=== PATIENT | male | born 1965 | race Caucasian/White ===

== ENCOUNTER 2023-12-15 13:21 | Emergency (ER) | payer BC ==
[~2023-12-15] VITALS: Ht 172.7 cm; Wt 81.4 kg
[2023-12-15] MEDS ORDERED: LISINOPRIL20 MG PO (14:10)
[2023-12-15] MEDS ORDERED: OXYCODONE HCL10 M1 PO (14:10)
[2023-12-15 14:26] LABS: BASO # 0.04 K/mm3 (0.02-0.10); EOS # 0.09 K/mm3 (0.04-0.40); EOS % 1.3 % (0.0-4.0); HEMATOCRIT 45.1 % (42.0-52.0); HEMOGLOBIN 15.6 g/dL (13.5-18.0); LYMPH# 1.64 K/mm3 (1.50-4.00); MEAN CELL VOLUME 84 fl (78-100); MEAN CORPUSCULAR HEMOGLOBIN 29 pg (27-31); MEAN CORPUSCULAR HGB CONC 35 g/dL (33-37); MEAN PLATELET VOLUME 9.4 fl (7.4-10.4); MONO # 0.53 K/mm3 (0.20-0.80); NEU # 4.71 K/mm3 (1.40-6.50); PLATELET COUNT 227 K/mm3 (130-400); RED BLOOD COUNT 5.35 M/mm3 (4.20-5.60)
[2023-12-15 14:36] LABS: ALBUMIN 4.3 g/dL (3.5-5.0)
[2023-12-15 14:37] LABS: SODIUM 136 mmol/L (136-145)
[2023-12-15 14:38] LABS: CALCIUM 9.5 mg/dL (8.3-10.5)
[2023-12-15 14:39] LABS: GLUCOSE 288 mg/dL (75-110); TOTAL PROTEIN 7.8 g/dL (6.4-8.3)
[2023-12-15 14:40] LABS: CARBON DIOXIDE 22 mmol/L (22-29)
[2023-12-15 14:41] LABS: TOTAL BILIRUBIN 0.3 mg/dL (0.2-1.2)
[2023-12-15 14:44] LABS: AST-SGOT 17 U/L (5-34)
[2023-12-15 14:46] LABS: ALT/SGPT 19 U/L (0-55)
[2023-12-15 14:54] LABS: TROPONIN-I < 0.030 ng/mL (0.00-0.033)
[2023-12-15 15:25] VITALS: BP 155/90
== END 2023-12-15 15:25 | disposition home or self-care (01) ==
LOC: ED 13:21
PROVIDERS: Physician Assistant
DX: I10 Essential (primary) hypertension (principal); T46.4X6A Underdosing of angiotensin-converting-enzyme inhibitors, initial encounter; Z79.899 Other long term (current) drug therapy; Z91.128 Patient's intentional underdosing of medication regimen for other reason

== ENCOUNTER → 2023-12-30 | Outpatient (CLI) | payer BC ==
[~2023-12-30] MED LIST: LISINOPRIL20 MG PO; OXYCODONE HCL10 M1 PO
[2024-02-21 12:46] LABS: ALBUMIN 4.2 g/dL (3.5-5.0); CALCIUM 10.3 mg/dL (8.3-10.5); MAGNESIUM 1.62 mg/dL (1.60-2.60); TOTAL BILIRUBIN 0.3 mg/dL (0.2-1.2)
== END ==
LOC: LAB 17:20
PROVIDERS: Internal Medicine
DX: Z12.5 Encounter for screening for malignant neoplasm of prostate (principal); I10 Essential (primary) hypertension; E11.9 Type 2 diabetes mellitus without complications

== ENCOUNTER → 2024-05-23 | Outpatient (CLI) | payer BC ==
[2024-05-23 15:05] LABS: ALBUMIN 4.1 g/dL (3.5-5.0)
[2024-05-23 15:06] LABS: CALCIUM 9.3 mg/dL (8.3-10.5)
[2024-05-23 15:08] LABS: TOTAL PROTEIN 7.2 g/dL (6.4-8.3)
[2024-05-23 15:09] LABS: TOTAL BILIRUBIN 0.4 mg/dL (0.2-1.2)
[2024-05-23 15:14] LABS: MAGNESIUM 2.24 mg/dL (1.60-2.60)
[2024-05-23 22:39] LABS: FOLLICLE STIMULATING HORMONE 4.1 mIU/mL (1.0-12.0); PROLACTIN AMS 8.9 ng/mL (3.5-19.4)
== END ==
LOC: LAB 14:43
PROVIDERS: Internal Medicine
DX: I10 Essential (primary) hypertension (principal); E78.2 Mixed hyperlipidemia; E11.9 Type 2 diabetes mellitus without complications; F52.21 Male erectile disorder; R20.2 Paresthesia of skin

== ENCOUNTER → 2024-08-29 | Outpatient (CLI) | payer BC ==
[~2024-08-29] VITALS: Ht 172.7 cm; Wt 87.1 kg
[~2024-08-29] MED LIST changes: +HYDROCHLOROTHIA1 T15 PO; +METFORMIN HCL500 M2 PO; +NORVASC 10MG10 MG PO; +Testosterone Cyp in Oil 200 MG/ML 1 ML VIAL IM ONE; +VIAGRA100 M1 PO
[2024-08-29 16:11] VITALS: BP 174/107
== END ==
LOC: AMSURD 15:48
DX: E53.8 Deficiency of other specified B group vitamins (principal); E23.0 Hypopituitarism
CPT/HCPCS: J1071; J3420

== ENCOUNTER → 2024-11-02 | Outpatient (CLI) | payer BC ==
[~2024-11-02] VITALS: Ht 172.7 cm; Wt 87.1 kg
[2024-11-02 16:36] VITALS: BP 170/100
== END ==
LOC: AMSURD 16:06
DX: E23.0 Hypopituitarism (principal); E53.8 Deficiency of other specified B group vitamins
CPT/HCPCS: J1071; J3420